=== PATIENT | male | born 1970 | race Caucasian/White ===

== ENCOUNTER 2017-05-03 18:57 | Emergency (ER) | payer OTHER ==
[2017-05-03 19:04] VITALS: BP 150/109; PULSE 80; RESP 18; TEMP 98.4; O2SAT 94
--- NOTE | 2017-05-03 19:15 | EDPHY ---
H & P Time Seen by Provider: 05/03/17 19:05 HPI/ROS: CHIEF COMPLAINT: Acute right knee pain HISTORY OF PRESENT ILLNESS: 47-year-old male was skiing earlier today at [employer], felt immediate pain to his right knee when he was turning and fell. He got himself up and was unable to continue skiing secondary to instability. No direct trauma or fall. He went to urgent care and was referred to the ER for evaluation. No proximal or distal pain or injury. Primary care provider: Dr. Jana Fontaine PHYSICAL EXAM (Prior to examination, patient consented to physical exam, hands were washed and my usual and customary physical exam procedures followed) 1) GENERAL: Well-developed, well-nourished, alert and oriented. Appears to be in no acute distress. 2) HEAD: Normocephalic 3) HEENT: Pupils equal, round, reactive to light bilaterally. 4) LUNGS: Breathing comfortably. 5) MUSCULOSKELETAL: Exam of the right knee shows soft tissue swelling . No gross instability. Normal geographic landmarks. Compartments are soft. 6) SKIN: Intact 7) VASCULAR: DP,PT pulses and cap refill present and brisk distally DIFFERENTIAL DIAGNOSIS: in no particular order including but not limited to fracture, sprain, compartment syndrome, septic arthritis, DVT Procedure: Crutches indications for crutch use discussed with patient. Patient fitted for crutches by ER staff. Observed ambulating with crutches. I think the patient has the capacity to safely use crutches. Usual and customary crutch walking precautions provided Procedure: Splint A knee immobilizer splint was applied by ER emergency medical technician basic. After application of the splint I returned and re-examined the patient. The splint was adequately immobilizing the joint and distal to the splint the patient's circulation and sensation were intact. Patient shows no signs of compartment syndrome. Was given orthopedic precautions. MEDICAL DECISION MAKING Serial evaluations performed on patient. I discussed the limitations of x-ray in diagnosis of knee pain and injury. At this time I do not think that emergent MRI is currently indicated. However, I have recommended follow-up with Orthopedic surgery and provided this referral information. Informed the patient that outpatient MRI may be indicated. Doubt septic arthritis. Doubt compartment syndrome. Smoking Status: Never smoked Constitutional: Initial Vital Signs Temperature (C) 36.9 C 05/03/17 19:01 Heart Rate 80 05/03/17 19:01 Respiratory Rate 18 05/03/17 19:01 Blood Pressure 150/109 H 05/03/17 19:01 O2 Sat (%) 94 05/03/17 19:01 O2 Delivery Mode Room Air Allergies/Adverse Reactions: No Known Allergies Allergy (Unverified 07/30/15 13:22) Home Medications: Medication Instructions Recorded Aspirin 81mg (OTC) 07/30/15 Atorvastatin Calcium 07/30/15 Omeprazole 07/30/15 Hydrocodone/APAP 5/325 [[place] 1 tab PO Q6 PRN #7 tab 05/03/17 5/325 (RX)] MDM/Departure - Depart Disposition: Home, Routine, Self-Care Clinical Impression: Sprain of right knee Qualifiers: Encounter type: initial encounter Involved ligament of knee: unspecified ligament Qualified Code(s): S83.91XA - Sprain of unspecified site of right knee , initial encounter Condition: Good Instructions: Knee Sprain (ED) Additional Instructions: Return to the ER immediately if you experience discoloration, have worsening pain, numbness, tingling, or any other symptoms that concern you. If you received x-rays in the emergency department today, be advised, that ligamentous , tendon, muscular, and other non-bony injury cannot be fully ruled out. Try to keep your affected extremity elevated above the level of your chest, and keep cold packs on the affected area, for the next 48 hours. Prescriptions: Hydrocodone/APAP 5/325 [[place] 5/325 (RX)] 1 tab PO Q6 PRN #7 tab PRN Reason: Pain, Severe Referrals: Flash Medina MD [Medical Doctor] - 2-3 days without fail
== END 2017-05-03 19:46 | disposition home or self-care (01) ==
DX: S83.91XA Sprain of unspecified site of right knee, initial encounter (principal); Z79.82 Long term (current) use of aspirin; V00.321A Fall from snow-skis, initial encounter; Y92.828 Other wilderness area as the place of occurrence of the external cause; Y93.23 Activity, snow (alpine) (downhill) skiing, snowboarding, sledding, tobogganing and snow tubing
CPT/HCPCS: L1830

== ENCOUNTER 2017-08-26 16:21 | Emergency (ER) | payer OTHER ==
[2017-08-26 16:32] VITALS: BP 144/102
--- NOTE | 2017-08-26 17:29 | EDPHY ---
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 The patient's right hand was struck by 1 of their heavy extrication tools causing bruising and pain. Patient denies his hand getting stuck in the device or pinched. He has mild discomfort. It is worse with movement. No numbness or tingling.. REVIEW OF SYSTEMS: Negative Past Medical/Surgical History: Noncontributory Smoking Status: Never smoked Physical Exam: General Appearance: Alert and no distress. Head: Pupils equal. Normal. Respiratory: No respiratory distress. Cardiac: regular rate and rhythm. Extremities: Patient's right hand has swelling and ecchymosis over the 1st and 2nd metacarpal. There is mild tenderness palpation. No finger tenderness. Neurovascular intact distally. The patient has no wrist or snuffbox tenderness. Skin: No rashes or lesions. Neuro: Alert. Normal mood and affect. Constitutional: Initial Vital Signs Temperature (C) 36.8 C 08/26/17 16:31 Heart Rate 71 08/26/17 16:31 Respiratory Rate 18 08/26/17 16:31 Blood Pressure 144/102 H 08/26/17 16:31 O2 Sat (%) 93 08/26/17 16:31 O2 Delivery Mode Room Air Allergies/Adverse Reactions: No Known Allergies Allergy (Unverified 07/30/15 13:22) Home Medications: Medication Instructions Recorded Aspirin 81mg (OTC) 07/30/15 Atorvastatin Calcium 07/30/15 Omeprazole 07/30/15 Hydrocodone/APAP 5/325 [[place] 1 tab PO Q6 PRN #7 tab 05/03/17 5/325 (RX)] Medical Decision Making - Diagnostics Imaging Results: Imaging Impressions Hand X-Ray 08/26/17 16:43 Impression: 1. No acute osseous abnormality seen right hand. ED Course/Re-evaluation: In the emergency department I discussed possible etiologies with the patient. I answered all his questions. X-ray was ordered. Right hand x-ray: No fracture dislocation. Please refer the dictated report by the radiologist. I discussed the results with the patient. I answered all his questions. He was given warnings prior to leaving. He will return with worsening symptoms. Differential Diagnosis: My differential includes but is not limited to fracture, dislocation, contusion , sprain Departure - Departure Disposition: Home, Routine, Self-Care Clinical Impression: Hand contusion Qualifiers: Encounter type: initial encounter Laterality: left Qualified Code(s): S60.222A - Contusion of left hand, initial encounter Condition: Good Instructions: Contusion in Adults (ED) Additional Instructions: Ice and elevate your hand. If it does not improve follow up with Orthopedics or workman's Comp. Referrals: Work Comp Referral [facility] [Outside] - 5-7 days, call for appt.
== END 2017-08-26 17:36 | disposition home or self-care (01) ==
DX: S60.222A Contusion of left hand, initial encounter (principal); Z79.82 Long term (current) use of aspirin; W22.8XXA Striking against or struck by other objects, initial encounter; Y92.69 Other specified industrial and construction area as the place of occurrence of the external cause; Y99.0 Civilian activity done for income or pay; Y93.89 Activity, other specified